=== PATIENT | male | born 1955 | race Caucasian/White ===

== ENCOUNTER 2021-05-19 09:17 | Emergency (ER) | payer BC ==
[~2021-05-19] VITALS: Ht 177.8 cm; Wt 73.5 kg
[2021-05-19 09:35] VITALS: BP 132/65
[2021-05-19] MEDS ORDERED: LIDOCAINE HCL/PF 2 % 5ML SDV 5 ML VIAL ONE (10:00)
[2021-05-19] MEDS ORDERED: TDAP [DIPH/PERTUSSIS/TET] 0.5 ML VIAL IM ONE ×2 (11:27→11:30)
--- NOTE | 2021-05-19 11:45 | NUR ---
Patient discharged to home in stable condition. Written and verbal after care instructions given. Patient verbalizes understanding of instruction.
== END 2021-05-19 11:51 | disposition home or self-care (01) ==
LOC: ER 09:18
DX: S61.213A Laceration without foreign body of left middle finger without damage to nail, initial encounter (principal); S61.215A Laceration without foreign body of left ring finger without damage to nail, initial encounter; S61.211A Laceration without foreign body of left index finger without damage to nail, initial encounter; I10 Essential (primary) hypertension; E11.9 Type 2 diabetes mellitus without complications; W27.0XXA Contact with workbench tool, initial encounter; Y93.89 Activity, other specified; Y92.89 Other specified places as the place of occurrence of the external cause; Y99.8 Other external cause status
CPT/HCPCS: 12002; 90471; 90715; 99283; A6403 ×2; J3490